=== PATIENT | male | born 1960 | race African-American/Black ===

== ENCOUNTER 2019-04-04 12:58 | Inpatient (IN) ==
[2019-04-04] MEDS ORDERED: SODIUM CHLORIDE 0.9% 500 ML IV STA (13:38)
[2019-04-04 15:40] LABS: Eosinophils # 0.1 10*3/uL (0.0-0.87); Eosinophils % 0.8 % (0.00-10.9); Immature Granulocytes Absolute 0.21 #; Mean Corpuscular HGB Conc 28.9 GM/DL (32-36); Mean Platelet Volume 9.2 FL (9.6-12.0); Monocytes % 7.4 % (1.7-12.7); Neutrophils % 80.8 % (38.7-73.9); Platelet Count 189 T/CUMM (130-400); Red Blood Count 1.44 MC/CUMM (3.8-5.5); Red Cell Distribution Width 21.3 % (9.3-17.3); White Blood Count 10.7 T/CUMM (4-12)
[2019-04-04 15:47] LABS: Hemoglobin 3.5 GM/DL (14.0-18.0)
[2019-04-04 15:56] LABS: Alanine Aminotransferase 13 U/L (16-61); Albumin 1.4 G/DL (3.4-5.0); Alkaline Phosphatase 111 U/L (45-117); Aspartate Amino Transferase 21 U/L (0-37); Bilirubin,Total < 0.39 MG/DL (0.2-1.0); Blood Urea Nitrogen 58 MG/DL (7-18); Calcium 7.6 MG/DL (8.5-10.1); Estimated Glom Filtration Rate 53 ML/MIN; Glucose 167 MG/DL (74-106); Osmolality,Calculated 287.2 MOS/KG (273-304); Total Protein 5.2 G/DL (6.4-8.3)
[2019-04-04 16:04] LABS: PT Patient Result 10.9 SECS (9.6-12.2)
[2019-04-04] MEDS ORDERED: ALBUTEROL 2.5 MG/3 ML NEB RESP TX PRN (16:39)
[2019-04-04] MEDS ORDERED: SODIUM CHLORIDE 0.9% 1,000 ML IV PRN ×2 (16:39→19:52)
[2019-04-04] MEDS ORDERED: DEXTROSE 10% 25 GM/250 ML BAG IV PRN (16:53)
[2019-04-04] MEDS ORDERED: GLUCAGON 1 MG VIAL IM PRN (16:53)
[2019-04-04] MEDS ORDERED: POTASSIUM CHLORIDE 20 MEQ/15 ML UDCUP PER TUBE ONE (16:57)
[2019-04-04] MEDS ORDERED: METOCLOPRAMIDE 10 MG TABLET ONE (18:09)
[2019-04-04] MEDS: METOCLOPRAMIDE 5 MG TABLET PEG SCH ×2 (18:39→22:00)
[2019-04-04] MEDS: PANTOPRAZOLE 40 MG VIAL IV SCH (18:39)
[2019-04-04] MEDS: LACTOBACILLUS ACIDOPHILUS/BULGARICUS 1 PACKET PO SCH (21:00)
[2019-04-04 21:33] LABS: Band Neutrophils 5 % (0-10); Lymphocytes 7 % (20-55); Platelet Estimate Normal; Segmented Neutrophils 85 % (50-85); Total Cells Counted 100
[2019-04-04 21:34] LABS: Microcytosis Slight
[2019-04-04] MEDS: MIDODRINE 5 MG TABLET PEG SCH (22:00)
[2019-04-04] MEDS: INSULIN REGULAR 100 UNIT/ML SUBCUT SCH (22:44)
[2019-04-05 07:14] LABS: Hemoglobin 6.6 GM/DL (14.0-18.0)
[2019-04-05 08:50] LABS: Hematocrit 12.1 VOL% (42.0-52.0)
[2019-04-05] MEDS: INSULIN REGULAR 100 UNIT/ML SUBCUT SCH ×4 (09:37→20:02)
[2019-04-05 09:59] LABS: Basophils % 0.2 % (0.0-0.8); Eosinophils % 0.2 % (0.00-10.9); Hematocrit 20.9 VOL% (42.0-52.0); Hemoglobin 6.5 GM/DL (14.0-18.0); Immature Granulocytes % 2.4 %; Immature Granulocytes Absolute 0.29 #; Lymphocytes # 0.8 10*3/uL (1.4-4.0); Lymphocytes % 6.4 % (21.2-54.2); Mean Corpuscular HGB Conc 31.1 GM/DL (32-36); Mean Corpuscular Volume 84.6 FL (87-102); Mean Platelet Volume 9.8 FL (9.6-12.0); Monocytes % 6.2 % (1.7-12.7); NRBC # 0.02 10*3/uL; Neutrophils % 84.6 % (38.7-73.9); Platelet Count 256 T/CUMM (130-400); Red Blood Count 2.47 MC/CUMM (3.8-5.5); Red Cell Distribution Width 19.2 % (9.3-17.3); White Blood Count 12.1 T/CUMM (4-12)
[2019-04-05] MEDS ORDERED: LIDOCAINE 2% 5 ML VIAL ONE (10:00)
[2019-04-05] MEDS: LACTOBACILLUS ACIDOPHILUS/BULGARICUS 1 PACKET PO SCH ×2 (10:10→20:41)
[2019-04-05] MEDS: METOCLOPRAMIDE 5 MG TABLET PEG SCH ×4 (10:10→20:41)
[2019-04-05] MEDS: THIAMINE 100 MG TABLET PEG SCH (10:10)
[2019-04-05] MEDS: MIDODRINE 5 MG TABLET PEG SCH ×3 (10:10→20:41)
[2019-04-05] MEDS: MULTIVITAMIN (CENTRUM) TABLET PO SCH (10:11)
[2019-04-05] MEDS: FOLIC ACID 1 MG TABLET PEG SCH (10:11)
[2019-04-05 10:26] LABS: Calcium 8.2 MG/DL (8.5-10.1); Osmolality,Calculated 287.2 MOS/KG (273-304)
[2019-04-05] MEDS: CLOPIDOGREL 75 MG TABLET PEG SCH (10:40)
[2019-04-05] MEDS: ASPIRIN CHEW 81 MG TABLET PO SCH (10:40)
[2019-04-05] MEDS ORDERED: SODIUM CHLORIDE 0.9% 1,000 ML IV PRN (11:00)
[2019-04-05] MEDS: SODIUM CHLORIDE 0.9% 1,000 ML IV SCH (15:05)
[2019-04-05 16:04] LABS: Hemoglobin 8.1 GM/DL (14.0-18.0)
[2019-04-05] MEDS: PANTOPRAZOLE 40 MG VIAL IV SCH (16:11)
[2019-04-05] MEDS: MENTHOL/ZINC OXIDE OINT 71 GM JAR TOP SCH (20:41)
[2019-04-06 06:18] LABS: Basophils % 0.3 % (0.0-0.8); Eosinophils % 0.4 % (0.00-10.9); Hematocrit 24.9 VOL% (42.0-52.0); Hemoglobin 7.7 GM/DL (14.0-18.0); Immature Granulocytes % 2.1 %; Lymphocytes # 0.8 10*3/uL (1.4-4.0); Lymphocytes % 8.5 % (21.2-54.2); Mean Corpuscular HGB Conc 30.9 GM/DL (32-36); Mean Corpuscular Volume 86.8 FL (87-102); Mean Platelet Volume 9.6 FL (9.6-12.0); Monocytes % 7.5 % (1.7-12.7); Neutrophils % 81.2 % (38.7-73.9); Platelet Count 256 T/CUMM (130-400); Red Blood Count 2.87 MC/CUMM (3.8-5.5); Red Cell Distribution Width 19.1 % (9.3-17.3); White Blood Count 9.6 T/CUMM (4-12)
[2019-04-06 06:43] LABS: Calcium 8.2 MG/DL (8.5-10.1)
[2019-04-06] MEDS: THIAMINE 100 MG TABLET PEG SCH (08:03)
[2019-04-06] MEDS: MIDODRINE 5 MG TABLET PEG SCH ×3 (08:03→20:21)
[2019-04-06] MEDS: MENTHOL/ZINC OXIDE OINT 71 GM JAR TOP SCH ×2 (08:03→21:40)
[2019-04-06] MEDS: MULTIVITAMIN (CENTRUM) TABLET PO SCH (08:03)
[2019-04-06] MEDS: METOCLOPRAMIDE 5 MG TABLET PEG SCH ×4 (08:03→20:21)
[2019-04-06] MEDS: INSULIN REGULAR 100 UNIT/ML SUBCUT SCH ×4 (08:03→21:41)
[2019-04-06] MEDS: LACTOBACILLUS ACIDOPHILUS/BULGARICUS 1 PACKET PO SCH ×2 (08:03→20:21)
[2019-04-06] MEDS: FOLIC ACID 1 MG TABLET PEG SCH (08:03)
[2019-04-06] MEDS: SODIUM CHLORIDE 0.9% 1,000 ML IV SCH (11:44)
[2019-04-06] MEDS: CLOPIDOGREL 75 MG TABLET PEG SCH (11:44)
[2019-04-06] MEDS: ASPIRIN CHEW 81 MG TABLET PO SCH (11:44)
[2019-04-06] MEDS ORDERED: oxyCODONE/ACETAMINOPHEN 5-325 MG TABLET PEG PRN (16:54)
[2019-04-06] MEDS: PANTOPRAZOLE 40 MG VIAL IV SCH (17:41)
[2019-04-07 04:32] LABS: Basophils % 0.3 % (0.0-0.8); Eosinophils # 0.1 10*3/uL (0.0-0.87); Eosinophils % 1.3 % (0.00-10.9); Hemoglobin 7.6 GM/DL (14.0-18.0); Immature Granulocytes % 1.4 %; Immature Granulocytes Absolute 0.11 #; Lymphocytes # 0.8 10*3/uL (1.4-4.0); Lymphocytes % 9.8 % (21.2-54.2); Mean Corpuscular HGB Conc 30.4 GM/DL (32-36); Mean Platelet Volume 9.7 FL (9.6-12.0); Monocytes % 9.9 % (1.7-12.7); Neutrophils % 77.3 % (38.7-73.9); Platelet Count 277 T/CUMM (130-400); Red Blood Count 2.84 MC/CUMM (3.8-5.5); Red Cell Distribution Width 19.9 % (9.3-17.3)
[2019-04-07 05:02] LABS: Calcium 8.3 MG/DL (8.5-10.1); Osmolality,Calculated 284.7 MOS/KG (273-304)
[2019-04-07] MEDS: THIAMINE 100 MG TABLET PEG SCH (10:00)
[2019-04-07] MEDS: INSULIN REGULAR 100 UNIT/ML SUBCUT SCH ×4 (10:00→21:33)
[2019-04-07] MEDS: MULTIVITAMIN (CENTRUM) TABLET PO SCH (10:00)
[2019-04-07] MEDS: MENTHOL/ZINC OXIDE OINT 71 GM JAR TOP SCH (10:00)
[2019-04-07] MEDS: FOLIC ACID 1 MG TABLET PEG SCH (10:00)
[2019-04-07] MEDS: LACTOBACILLUS ACIDOPHILUS/BULGARICUS 1 PACKET PO SCH ×2 (10:00→21:33)
[2019-04-07] MEDS: METOCLOPRAMIDE 5 MG TABLET PEG SCH ×4 (10:00→21:33)
[2019-04-07] MEDS: MIDODRINE 5 MG TABLET PEG SCH ×3 (10:00→21:33)
[2019-04-07] MEDS: POLYETHYLENE GLYCOL POWDER 17 GM PACK PEG SCH (10:31)
[2019-04-07] MEDS: PANTOPRAZOLE 40 MG VIAL IV SCH (17:23)
[2019-04-08] MEDS: MENTHOL/ZINC OXIDE OINT 71 GM JAR TOP SCH ×3 (02:11→20:24)
[2019-04-08 05:20] LABS: Hematocrit 25.4 VOL% (42.0-52.0); Hemoglobin 7.9 GM/DL (14.0-18.0)
[2019-04-08 05:54] LABS: Calcium 8.5 MG/DL (8.5-10.1); Osmolality,Calculated 291.5 MOS/KG (273-304); Prealbumin 12.2 MG/DL (20-40)
[2019-04-08] MEDS: FOLIC ACID 1 MG TABLET PEG SCH (09:51)
[2019-04-08] MEDS: MIDODRINE 5 MG TABLET PEG SCH ×3 (09:51→20:23)
[2019-04-08] MEDS: MULTIVITAMIN (CENTRUM) TABLET PO SCH (09:51)
[2019-04-08] MEDS: METOCLOPRAMIDE 5 MG TABLET PEG SCH ×4 (09:51→20:23)
[2019-04-08] MEDS: THIAMINE 100 MG TABLET PEG SCH (09:51)
[2019-04-08] MEDS: CLOPIDOGREL 75 MG TABLET PO SCH (09:51)
[2019-04-08] MEDS: INSULIN REGULAR 100 UNIT/ML SUBCUT SCH ×4 (09:52→21:08)
[2019-04-08] MEDS: POLYETHYLENE GLYCOL POWDER 17 GM PACK PEG SCH (09:53)
[2019-04-08] MEDS: LACTOBACILLUS ACIDOPHILUS/BULGARICUS 1 PACKET PO SCH ×2 (09:55→20:24)
[2019-04-08] MEDS: PANTOPRAZOLE 40 MG VIAL IV SCH (16:08)
[2019-04-09 05:49] LABS: Basophils % 0.4 % (0.0-0.8); Eosinophils # 0.3 10*3/uL (0.0-0.87); Eosinophils % 3.2 % (0.00-10.9); Hematocrit 26.1 VOL% (42.0-52.0); Hemoglobin 7.9 GM/DL (14.0-18.0); Immature Granulocytes % 1.1 %; Immature Granulocytes Absolute 0.09 #; Lymphocytes # 0.9 10*3/uL (1.4-4.0); Lymphocytes % 10.5 % (21.2-54.2); Mean Corpuscular HGB Conc 30.3 GM/DL (32-36); Mean Platelet Volume 9.8 FL (9.6-12.0); Monocytes % 10.8 % (1.7-12.7); Platelet Count 353 T/CUMM (130-400); White Blood Count 8.2 T/CUMM (4-12)
[2019-04-09] MEDS: INSULIN REGULAR 100 UNIT/ML SUBCUT SCH ×2 (08:22→12:27)
[2019-04-09] MEDS ORDERED: HEPARIN 10,000 UNIT/10 ML VIAL IV SCH (08:30)
[2019-04-09] MEDS ORDERED: PANTOPRAZOLE 40 MG TABLET PO SCH (09:00)
[2019-04-09] MEDS: METOCLOPRAMIDE 5 MG TABLET PEG SCH ×2 (09:00→12:04)
[2019-04-09] MEDS: MENTHOL/ZINC OXIDE OINT 71 GM JAR TOP SCH (11:45)
[2019-04-09] MEDS: MULTIVITAMIN (CENTRUM) TABLET PO SCH (11:45)
[2019-04-09] MEDS: THIAMINE 100 MG TABLET PEG SCH (11:45)
[2019-04-09] MEDS: FOLIC ACID 1 MG TABLET PEG SCH (11:45)
[2019-04-09] MEDS: LACTOBACILLUS ACIDOPHILUS/BULGARICUS 1 PACKET PO SCH (11:45)
[2019-04-09] MEDS: POLYETHYLENE GLYCOL POWDER 17 GM PACK PEG SCH (11:45)
[2019-04-09] MEDS: CLOPIDOGREL 75 MG TABLET PO SCH (11:45)
[2019-04-09] MEDS: MIDODRINE 5 MG TABLET PEG SCH ×2 (11:45→14:36)
[2019-04-09 12:10] VITALS: BP 126/80
== END 2019-04-09 15:00 | disposition home health service (06) | DRG 377 ==
LOC: EDBD → EDUNIT# → N.ED 12:58 → SUATTDRO 16:39 → N.EDINP 16:39 → N.CC 18:11 → N.5E 04-06 16:53
PROVIDERS: ADMIT Family Medicine; ATTEND Internal Medicine Nephrology

== ENCOUNTER 2019-04-10 21:55 | Inpatient (IN) ==
[2019-04-11] MEDS ORDERED: ALBUTEROL 2.5 MG/3 ML NEB RESP TX PRN (02:04)
[2019-04-11] MEDS ORDERED: hydrALAZINE 20 MG/1 ML VIAL IV PRN (02:07)
[2019-04-11] MEDS ORDERED: GLUCAGON 1 MG VIAL IM PRN (02:12)
[2019-04-11] MEDS ORDERED: DEXTROSE 10% 250 ML BAG IV PRN (02:12)
[2019-04-11 02:21] LABS: ABG Base Excess 3.5 MMOL/L (-2.5-2.5); ABG HCO3 27.6 MMOL/L (20-26); ABG Oxygen Saturation 96.8 % (95-100); ABG PH 7.511 (7.35-7.45); ABG PO2 70.9 MM HG (80-95); ABG TCO2 24.3 MMOL/L (23-27); Allen Test Positive; Pt O2 Delivery Device Room Air
[2019-04-11] MEDS ORDERED: AZITHROMYCIN INJ 500 MG in SODIUM CHLORIDE 0.9% 250 ML IV SCH (02:30)
[2019-04-11 02:33] LABS: Basophils % 0.4 % (0.0-0.8); Eosinophils # 0.3 10*3/uL (0.0-0.87); Eosinophils % 4.2 % (0.00-10.9); Hematocrit 25.1 VOL% (42.0-52.0); Hemoglobin 7.9 GM/DL (14.0-18.0); Immature Granulocytes % 0.9 %; Immature Granulocytes Absolute 0.06 #; Lymphocytes # 0.8 10*3/uL (1.4-4.0); Lymphocytes % 12.2 % (21.2-54.2); Mean Corpuscular HGB Conc 31.5 GM/DL (32-36); Mean Corpuscular Volume 84.5 FL (87-102); Mean Platelet Volume 9.2 FL (9.6-12.0); Monocytes % 10.3 % (1.7-12.7); Platelet Count 321 T/CUMM (130-400); Red Blood Count 2.97 MC/CUMM (3.8-5.5); Red Cell Distribution Width 17.7 % (9.3-17.3); White Blood Count 6.9 T/CUMM (4-12)
[2019-04-11 02:52] LABS: Calcium 8.3 MG/DL (8.5-10.1); Osmolality,Calculated 272.7 MOS/KG (273-304)
[2019-04-11] MEDS: ALBUTEROL/IPRATROPIUM 3 ML NEB RESP TX SCH ×6 (03:09→23:57)
[2019-04-11] MEDS: PIPERACILLIN/TAZOBACTAM 3,375 MG in SODIUM CHLORIDE 0.9% 100 ML IV SCH ×3 (03:56→20:22)
[2019-04-11] MEDS ORDERED: VANCOMYCIN INJ 1,000 MG in SODIUM CHLORIDE 0.9% 250 ML IV SCH (09:00)
[2019-04-11] MEDS ORDERED: VANCOMYCIN INJ 1,500 MG in SODIUM CHLORIDE 0.9% 500 ML IV ONE (09:00)
[2019-04-11] MEDS: INSULIN LISPRO 100 UNIT/ML SUBCUT SCH ×4 (09:17→20:23)
[2019-04-11] MEDS ORDERED: EPOETIN ALFA 2,000 UNIT/1 ML VIAL IV PRN (12:08)
[2019-04-11] MEDS ORDERED: HEPARIN 10,000 UNIT/10 ML VIAL IV SCH (13:30)
[2019-04-11] MEDS: MENTHOL/ZINC OXIDE OINT 71 GM JAR TOP SCH ×2 (16:02→20:18)
[2019-04-11] MEDS ORDERED: VANCOMYCIN INJ 500 MG in SODIUM CHLORIDE 0.9% 100 ML IV ONE (17:00)
[2019-04-11] MEDS ORDERED: VANCOMYCIN INJ 500 MG in SODIUM CHLORIDE 0.9% 100 ML IV PRN (17:00)
[2019-04-11] MEDS: MIDODRINE 5 MG TABLET PEG SCH (20:18)
[2019-04-12] MEDS: PIPERACILLIN/TAZOBACTAM 3,375 MG in SODIUM CHLORIDE 0.9% 100 ML IV SCH ×3 (03:21→20:10)
[2019-04-12] MEDS: ALBUTEROL/IPRATROPIUM 3 ML NEB RESP TX SCH ×6 (03:43→23:25)
[2019-04-12 05:47] LABS: Basophils % 0.4 % (0.0-0.8); Eosinophils # 0.1 10*3/uL (0.0-0.87); Eosinophils % 2.5 % (0.00-10.9); Hematocrit 23.6 VOL% (42.0-52.0); Hemoglobin 7.3 GM/DL (14.0-18.0); Immature Granulocytes % 0.4 %; Immature Granulocytes Absolute 0.02 #; Lymphocytes # 0.5 10*3/uL (1.4-4.0); Mean Corpuscular HGB Conc 30.9 GM/DL (32-36); Mean Corpuscular Volume 84.9 FL (87-102); Mean Platelet Volume 9.5 FL (9.6-12.0); Monocytes % 9.1 % (1.7-12.7); Neutrophils % 76.6 % (38.7-73.9); Platelet Count 280 T/CUMM (130-400); Red Blood Count 2.78 MC/CUMM (3.8-5.5); Red Cell Distribution Width 17.7 % (9.3-17.3); White Blood Count 4.8 T/CUMM (4-12)
[2019-04-12 06:16] LABS: Calcium 8.6 MG/DL (8.5-10.1); Osmolality,Calculated 285.4 MOS/KG (273-304)
[2019-04-12] MEDS: CLOPIDOGREL 75 MG TABLET PEG SCH (09:02)
[2019-04-12] MEDS: THIAMINE 100 MG TABLET PEG SCH (09:02)
[2019-04-12] MEDS: MIDODRINE 5 MG TABLET PEG SCH ×3 (09:02→20:10)
[2019-04-12] MEDS: PANTOPRAZOLE 40 MG TABLET PO SCH (09:02)
[2019-04-12] MEDS: FOLIC ACID 1 MG TABLET PEG SCH (09:02)
[2019-04-12] MEDS: ASPIRIN EC 81 MG TABLET PO SCH (09:02)
[2019-04-12] MEDS: MENTHOL/ZINC OXIDE OINT 71 GM JAR TOP SCH ×2 (09:03→20:10)
[2019-04-12] MEDS: INSULIN LISPRO 100 UNIT/ML SUBCUT SCH ×4 (09:03→20:14)
[2019-04-13] MEDS: ALBUTEROL/IPRATROPIUM 3 ML NEB RESP TX SCH ×5 (03:24→19:16)
[2019-04-13] MEDS: PIPERACILLIN/TAZOBACTAM 3,375 MG in SODIUM CHLORIDE 0.9% 100 ML IV SCH ×2 (03:33→13:20)
[2019-04-13 05:43] LABS: Basophils % 0.4 % (0.0-0.8); Eosinophils # 0.2 10*3/uL (0.0-0.87); Eosinophils % 2.9 % (0.00-10.9); Hematocrit 23.4 VOL% (42.0-52.0); Hemoglobin 7.1 GM/DL (14.0-18.0); Immature Granulocytes % 0.4 %; Immature Granulocytes Absolute 0.02 #; Lymphocytes # 0.7 10*3/uL (1.4-4.0); Lymphocytes % 12.8 % (21.2-54.2); Mean Corpuscular HGB Conc 30.3 GM/DL (32-36); Mean Corpuscular Volume 85.7 FL (87-102); Mean Platelet Volume 9.3 FL (9.6-12.0); Monocytes % 9.9 % (1.7-12.7); Neutrophils % 73.6 % (38.7-73.9); Platelet Count 306 T/CUMM (130-400); Red Blood Count 2.73 MC/CUMM (3.8-5.5); Red Cell Distribution Width 17.9 % (9.3-17.3); White Blood Count 5.2 T/CUMM (4-12)
[2019-04-13] MEDS ORDERED: SODIUM CHLORIDE 0.9% 1,000 ML IV PRN ×2 (07:44→08:49)
[2019-04-13] MEDS: ASPIRIN EC 81 MG TABLET PO SCH (11:26)
[2019-04-13] MEDS: FOLIC ACID 1 MG TABLET PEG SCH (11:26)
[2019-04-13] MEDS: INSULIN LISPRO 100 UNIT/ML SUBCUT SCH ×3 (11:26→17:02)
[2019-04-13] MEDS: MENTHOL/ZINC OXIDE OINT 71 GM JAR TOP SCH (11:26)
[2019-04-13] MEDS: CLOPIDOGREL 75 MG TABLET PEG SCH (11:26)
[2019-04-13] MEDS: PANTOPRAZOLE 40 MG TABLET PO SCH (11:27)
[2019-04-13] MEDS: MIDODRINE 5 MG TABLET PEG SCH ×2 (11:27→17:02)
[2019-04-13] MEDS: THIAMINE 100 MG TABLET PEG SCH (11:27)
[2019-04-13] MEDS ORDERED: LEVOFLOXACIN 750 MG TABLET PO ONE (15:37)
[2019-04-14 01:32] VITALS: BP 143/88
== END 2019-04-13 20:40 | disposition home health service (06) | DRG 193 ==
LOC: N.5E
PROVIDERS: ADMIT Internal Medicine; ATTEND Internal Medicine

== ENCOUNTER 2019-06-17 15:45 | Inpatient (IN) ==
[2019-06-17] MEDS ORDERED: ONDANSETRON 4 MG/2 ML VIAL IV STA (16:19)
[2019-06-17] MEDS ORDERED: PANTOPRAZOLE 40 MG VIAL IV STA (16:19)
[2019-06-17 17:03] LABS: Basophils # 0.1 10*3/uL (0.0-0.2); Basophils % 0.7 % (0.0-0.8); Eosinophils # 0.5 10*3/uL (0.0-0.87); Eosinophils % 6.3 % (0.00-10.9); Hematocrit 33.1 VOL% (42.0-52.0); Hemoglobin 9.7 GM/DL (14.0-18.0); Immature Granulocytes % 0.7 %; Immature Granulocytes Absolute 0.05 #; Lymphocytes % 13.6 % (21.2-54.2); Mean Corpuscular HGB Conc 29.3 GM/DL (32-36); Mean Corpuscular Volume 77.3 FL (87-102); Mean Platelet Volume 9.9 FL (9.6-12.0); Monocytes % 9.3 % (1.7-12.7); Neutrophils % 69.4 % (38.7-73.9); Platelet Count 365 T/CUMM (130-400); Red Blood Count 4.28 MC/CUMM (3.8-5.5); Red Cell Distribution Width 18.6 % (9.3-17.3); White Blood Count 7.5 T/CUMM (4-12)
[2019-06-17 17:18] LABS: Hypochromasia Slight
[2019-06-17 17:19] LABS: Anisocytosis Slight; Microcytosis Slight; Platelet Estimate Normal
[2019-06-17 17:29] LABS: PT Patient Result 10.7 SECS (9.6-12.2)
[2019-06-17 17:34] LABS: Alanine Aminotransferase 25 U/L (16-61); Albumin 2.6 G/DL (3.4-5.0); Alkaline Phosphatase 124 U/L (45-117); Aspartate Amino Transferase 22 U/L (0-37); Bilirubin,Total < 0.39 MG/DL (0.2-1.0); Blood Urea Nitrogen 89 MG/DL (7-18); Calcium 10.3 MG/DL (8.5-10.1); Estimated Glom Filtration Rate 56 ML/MIN; Glucose 177 MG/DL (74-106); Osmolality,Calculated 285.2 MOS/KG (273-304); Total Protein 8.1 G/DL (6.4-8.3)
[2019-06-17] MEDS ORDERED: ONDANSETRON 4 MG/2 ML VIAL IV PRN (19:47)
[2019-06-17] MEDS ORDERED: hydrALAZINE 20 MG/1 ML VIAL IV PRN (19:47)
[2019-06-17] MEDS ORDERED: LACTULOSE 20 GM/30 ML UDCUP PEG PRN (19:47)
[2019-06-17] MEDS: SODIUM CHLORIDE 0.9% 1,000 ML IV SCH (20:21)
[2019-06-17] MEDS: MIDODRINE 5 MG TABLET PEG SCH (20:32)
[2019-06-17] MEDS: PANTOPRAZOLE 40 MG VIAL IV SCH (20:33)
[2019-06-17] MEDS ORDERED: ENOXAPARIN 30 MG/0.3 ML SYRINGE SUBCUT SCH (21:00)
[2019-06-18] MEDS: SODIUM CHLORIDE 0.9% 1,000 ML IV SCH ×3 (04:42→19:28)
[2019-06-18 04:44] LABS: Basophils % 0.6 % (0.0-0.8); Eosinophils # 0.4 10*3/uL (0.0-0.87); Eosinophils % 6.5 % (0.00-10.9); Hemoglobin 8.5 GM/DL (14.0-18.0); Immature Granulocytes % 0.8 %; Immature Granulocytes Absolute 0.05 #; Lymphocytes # 1.2 10*3/uL (1.4-4.0); Lymphocytes % 18.3 % (21.2-54.2); Mean Corpuscular HGB Conc 29.3 GM/DL (32-36); Mean Corpuscular Volume 75.7 FL (87-102); Mean Platelet Volume 10.1 FL (9.6-12.0); Monocytes % 11.3 % (1.7-12.7); Neutrophils % 62.5 % (38.7-73.9); Platelet Count 378 T/CUMM (130-400); Red Blood Count 3.83 MC/CUMM (3.8-5.5); Red Cell Distribution Width 18.6 % (9.3-17.3); White Blood Count 6.3 T/CUMM (4-12)
[2019-06-18 05:24] LABS: Calcium 9.8 MG/DL (8.5-10.1); Osmolality,Calculated 292.4 MOS/KG (273-304)
[2019-06-18] MEDS: MULTIVITAMIN (CENTRUM) TABLET PEG SCH (09:25)
[2019-06-18] MEDS: PANTOPRAZOLE 40 MG VIAL IV SCH ×2 (09:25→22:24)
[2019-06-18] MEDS: THIAMINE 100 MG TABLET PEG SCH (09:25)
[2019-06-18] MEDS: MIDODRINE 5 MG TABLET PEG SCH ×3 (09:27→22:17)
[2019-06-18] MEDS ORDERED: DEXTROSE 10% 250 ML BAG IV PRN (11:51)
[2019-06-18] MEDS ORDERED: GLUCAGON 1 MG VIAL IM PRN (11:51)
[2019-06-18] MEDS: INSULIN REGULAR 100 UNIT/ML SUBCUT SCH ×2 (12:31→18:01)
[2019-06-18 13:43] LABS: Troponin I 0.049 NG/ML (0.00-0.045)
[2019-06-18] MEDS ORDERED: VANCOMYCIN INJ 500 MG in SODIUM CHLORIDE 0.9% 100 ML IV PRN (13:55)
[2019-06-18] MEDS ORDERED: EPOETIN ALFA 2,000 UNIT/1 ML VIAL IV PRN (14:11)
[2019-06-18] MEDS ORDERED: HEPARIN 10,000 UNIT/10 ML VIAL IV SCH (15:00)
[2019-06-18] MEDS ORDERED: VANCOMYCIN INJ 1,500 MG in SODIUM CHLORIDE 0.9% 500 ML IV ONE (17:00)
[2019-06-18] MEDS ORDERED: ENOXAPARIN 40 MG/0.4 ML SYRINGE SUBCUT SCH (21:00)
[2019-06-19] MEDS: INSULIN REGULAR 100 UNIT/ML SUBCUT SCH ×4 (00:11→18:46)
[2019-06-19] MEDS: SODIUM CHLORIDE 0.9% 1,000 ML IV SCH ×2 (04:14→08:54)
[2019-06-19 05:51] LABS: Basophils # 0.1 10*3/uL (0.0-0.2); Basophils % 0.8 % (0.0-0.8); Eosinophils # 0.3 10*3/uL (0.0-0.87); Eosinophils % 5.6 % (0.00-10.9); Immature Granulocytes % 0.7 %; Immature Granulocytes Absolute 0.04 #; Lymphocytes # 0.9 10*3/uL (1.4-4.0); Lymphocytes % 14.4 % (21.2-54.2); Mean Corpuscular HGB Conc 29.1 GM/DL (32-36); Mean Corpuscular Volume 76.6 FL (87-102); Mean Platelet Volume 9.5 FL (9.6-12.0); Neutrophils % 68.5 % (38.7-73.9); Platelet Count 375 T/CUMM (130-400); Red Blood Count 4.18 MC/CUMM (3.8-5.5); Red Cell Distribution Width 18.7 % (9.3-17.3); White Blood Count 5.9 T/CUMM (4-12)
[2019-06-19 06:16] LABS: Hemoglobin 9.5 GM/DL (14.0-18.0)
[2019-06-19 06:18] LABS: Calcium 9.6 MG/DL (8.5-10.1)
[2019-06-19 06:21] LABS: Risk Ratio 2.51; VLDL CHOLESTEROL 18.6 MG/DL
[2019-06-19 06:33] LABS: Hypochromasia 1+; Platelet Estimate Adequate
[2019-06-19] MEDS ORDERED: SODIUM CHLORIDE 0.9% 1,000 ML IV SCH (08:00)
[2019-06-19] MEDS ORDERED: LIDOCAINE 2% 5 ML VIAL ONE (09:00)
[2019-06-19] MEDS ORDERED: propofoL 200 MG/20 ML VIAL IV ONE (09:00)
[2019-06-19] MEDS: PANTOPRAZOLE 40 MG VIAL IV SCH ×2 (09:05→21:16)
[2019-06-19] MEDS: MIDODRINE 5 MG TABLET PEG SCH ×3 (12:12→21:14)
[2019-06-19] MEDS: MULTIVITAMIN (CENTRUM) TABLET PEG SCH (12:17)
[2019-06-19] MEDS: THIAMINE 100 MG TABLET PEG SCH (12:17)
[2019-06-20] MEDS: INSULIN REGULAR 100 UNIT/ML SUBCUT SCH ×4 (02:40→18:41)
[2019-06-20] MEDS: ACETAMINOPHEN 325 MG TABLET PEG PRN ×2 (05:02→15:56)
[2019-06-20 07:13] LABS: Calcium 9.2 MG/DL (8.5-10.1); Osmolality,Calculated 297.5 MOS/KG (273-304); Prealbumin 16.4 MG/DL (20-40)
[2019-06-20] MEDS: PANTOPRAZOLE 40 MG VIAL IV SCH ×2 (09:06→21:05)
[2019-06-20] MEDS: MIDODRINE 5 MG TABLET PEG SCH (09:06)
[2019-06-20] MEDS: MULTIVITAMIN (CENTRUM) TABLET PEG SCH (09:06)
[2019-06-20] MEDS: THIAMINE 100 MG TABLET PEG SCH (09:07)
[2019-06-20 13:08] LABS: Basophils # 0.1 10*3/uL (0.0-0.2); Basophils % 0.3 % (0.0-0.8); Eosinophils # 0.1 10*3/uL (0.0-0.87); Eosinophils % 0.3 % (0.00-10.9); Hematocrit 36.4 VOL% (42.0-52.0); Immature Granulocytes % 0.7 %; Immature Granulocytes Absolute 0.17 #; Lymphocytes # 1.4 10*3/uL (1.4-4.0); Lymphocytes % 5.9 % (21.2-54.2); Mean Corpuscular HGB Conc 28.6 GM/DL (32-36); Mean Corpuscular Volume 78.3 FL (87-102); Monocytes % 12.3 % (1.7-12.7); Neutrophils % 80.5 % (38.7-73.9); Platelet Count 424 T/CUMM (130-400); Red Blood Count 4.65 MC/CUMM (3.8-5.5); Red Cell Distribution Width 18.8 % (9.3-17.3)
[2019-06-20 13:09] LABS: Hemoglobin 10.4 GM/DL (14.0-18.0)
[2019-06-20 13:13] LABS: Band Neutrophils 1 % (0-10); Lymphocytes 9 % (20-55); Segmented Neutrophils 84 % (50-85); Total Cells Counted 100
[2019-06-20 13:14] LABS: Hypochromasia Slight; Microcytosis 1+; Platelet Estimate Increased
[2019-06-20] MEDS ORDERED: VANCOMYCIN INJ 500 MG in SODIUM CHLORIDE 0.9% 100 ML IV ONE (17:00)
[2019-06-21] MEDS: INSULIN REGULAR 100 UNIT/ML SUBCUT SCH ×4 (00:13→18:17)
[2019-06-21 05:35] LABS: Basophils # 0.1 10*3/uL (0.0-0.2); Basophils % 0.4 % (0.0-0.8); Eosinophils # 0.2 10*3/uL (0.0-0.87); Eosinophils % 1.6 % (0.00-10.9); Immature Granulocytes % 0.5 %; Immature Granulocytes Absolute 0.06 #; Lymphocytes # 1.2 10*3/uL (1.4-4.0); Lymphocytes % 10.6 % (21.2-54.2); Mean Corpuscular HGB Conc 28.2 GM/DL (32-36); Mean Corpuscular Volume 78.8 FL (87-102); Mean Platelet Volume 10.2 FL (9.6-12.0); Monocytes % 8.4 % (1.7-12.7); Neutrophils % 78.5 % (38.7-73.9); Platelet Count 377 T/CUMM (130-400); Red Blood Count 3.96 MC/CUMM (3.8-5.5); Red Cell Distribution Width 18.6 % (9.3-17.3); White Blood Count 11.7 T/CUMM (4-12)
[2019-06-21 06:09] LABS: Hematocrit 30.8 VOL% (42.0-52.0)
[2019-06-21 06:10] LABS: Hemoglobin 8.8 GM/DL (14.0-18.0)
[2019-06-21 06:40] LABS: Hypochromasia 1+; Microcytosis 1+
[2019-06-21 06:41] LABS: Anisocytosis 1+
[2019-06-21] MEDS: PANTOPRAZOLE 40 MG VIAL IV SCH ×2 (09:53→22:02)
[2019-06-21] MEDS: MULTIVITAMIN (CENTRUM) TABLET PEG SCH (09:53)
[2019-06-21] MEDS: THIAMINE 100 MG TABLET PEG SCH (09:53)
[2019-06-21] MEDS: METOPROLOL TARTRATE 25 MG TABLET PEG SCH (22:02)
[2019-06-22] MEDS: INSULIN REGULAR 100 UNIT/ML SUBCUT SCH ×4 (00:32→18:13)
[2019-06-22] MEDS: MULTIVITAMIN (CENTRUM) TABLET PEG SCH (09:46)
[2019-06-22] MEDS: PANTOPRAZOLE 40 MG VIAL IV SCH (09:46)
[2019-06-22] MEDS: METOPROLOL TARTRATE 25 MG TABLET PEG SCH (09:47)
[2019-06-22] MEDS: THIAMINE 100 MG TABLET PEG SCH (09:47)
[2019-06-22] MEDS ORDERED: VANCOMYCIN INJ 500 MG in SODIUM CHLORIDE 0.9% 100 ML IV ONE (17:00)
[2019-06-22] MEDS: ACETAMINOPHEN 325 MG TABLET PEG PRN (19:54)
[2019-06-22 20:23] VITALS: BP 132/71
== END 2019-06-22 20:10 | disposition home health service (06) | DRG 377 ==
LOC: EDUNIT# → EDBD → N.ED 15:45 → SUATTDRO 18:11 → N.EDINP 18:11 → N.2E 18:43
PROVIDERS: ADMIT Internal Medicine; ATTEND Internal Medicine